=== PATIENT | female | born 1975 | race Two or more races ===

== ENCOUNTER 2024-02-06 11:58 | Emergency (ER) | payer SELFPAY ==
--- NOTE | 2024-02-06 12:33 | PC.NURSE ---
Pt to triage desk saying she wants to sign out, pt states she came in for chest pain and we did not call her right back so she is leaving, pt encouraged ot stay, pt states again we have not done anything, pt made aware of risks and consequences of leaving up to and including , pt encouraged to see pcp, she states she will
== END 2024-02-06 12:35 | disposition left against medical advice (07) ==
LOC: SERX 12:58
PROVIDERS: Emergency Provider Emergency Medicine
DX: Z53.21 Procedure and treatment not carried out due to patient leaving prior to being seen by health care provider (principal)

== ENCOUNTER 2024-04-05 10:54 | Emergency (ER) | payer BC, SELFPAY ==
[2024-04-05 11:21] VITALS: BP 145/93; PULSE 83; RESP 19; TEMP 36.9; O2SAT 99; BMI 34.0
--- NOTE | 2024-04-05 11:24 | EDNOTE_ITS ---
<Statement entered by Lyndsey Dooley MD - 04/12/24 16:24> As co-signing physician, I was present and available for consult prn. I concur with the plan and care as documented by the midlevel provider. ED General RME/HPI General Chief complaint: Flu Like Symptoms Stated complaint: COUGH AND FLU LIKE SYMPTOMS FOR 2 WEEKS Time Seen by Provider: 04/05/24 11:23 Arrival date/time: 04/05/24 10:54 CC: Sore throat cough runny nose HPI ongoing for the past 2 weeks took a leftover prednisone and antibiotic for 5 days without any relief. Has insurance so came in to get checked out. The patient is stable with no vital signs or abnormal as no other specific complaints. Related Data Home Medications ?Medication ?Instructions ?Recorded ?Confirmed biotin 5,000 mcg sublingual tablet 5,000 mcg DAILY 10/25/21 10/25/21 ferrous sulfate 324 mg (65 mg 324 mg PO QDAY 10/25/21 10/25/21 iron) tablet,delayed release fexofenadine 180 mg tablet 180 mg PO Q24H 10/25/21 10/25/21 (Aller-Fex) losartan 50 mg tablet 50 tab PO DAILY 10/25/21 10/25/21 montelukast 10 mg tablet 10 mg PO QDAY 10/25/21 10/25/21 pantoprazole 20 mg tablet,delayed 20 tab PO DAILY 10/25/21 10/25/21 release Previous Rx's ?Medication ?Instructions ?Recorded ipratropium 20 mcg-albuterol 100 1 puff inhalation QID #4 grams 03/29/19 mcg/actuation mist for inhalation (Combivent Respimat) fluticasone propionate 50 1 spray intranasal BID PRN nasal 10/27/21 mcg/actuation nasal congestion #16 grams spray,suspension (Allergy Relief (fluticasone)) meclizine 25 mg tablet 25 mg PO BID PRN dizziness #30 tabs 10/27/21 diphenhydramine HCl 25 mg capsule 25 mg PO TID PRN allergic reaction 08/23/23 (Benadryl) #20 caps famotidine 40 mg tablet (Pepcid) 40 mg PO BID #10 tabs 08/23/23 prednisone 50 mg tablet 50 mg PO QDAY #3 tabs 08/23/23 sulfamethoxazole 800 1 tab PO BID #14 tabs 08/23/23 mg-trimethoprim 160 mg tablet (Bactrim DS) meloxicam 7.5 mg tablet 7.5 mg PO QDAY #10 tabs 04/05/24 Allergies Allergy/AdvReac Type Severity Reaction Status Date / Time No Known Allergies Allergy Verified 08/23/23 18:25 Review of Systems Review of Systems Narrative Review of Systems: GEN: No fever, no chills, no weight loss EYES: No discharge, no visual changes, no pain HEENT: + ear pain, + congestion, + sore throat PULM: No shortness of breath, no cough, no congestion CV: No chest pain, no dyspnea on exertion, no palpitations GI: No nausea, no vomiting, no diarrhea, no pain, no constipation : No frequency, no urgency, no dysuria MUSC/SKEL: No joint pain, no back pain SKIN: No rash PSYCH: No hallucinations, no depression HEME/LYMPH: No easy bleeding or bruising tendencies NEURO: No weakness, no headache Past Medical History Past Medical History CARDIAC: Positive Cardiac Disorders and Hypertension; Negative Congestive Heart Failure RESPIRATORY: Negative Chronic Obstructive Pulmonary Disease (COPD) GASTROINTESTINAL: Positive Gastroesophageal Reflux Disease GENITOURINARY: Negative Renal Disease ENDOCRINE: Negative Diabetes Mellitus Type 1 or Diabetes Mellitus Type 2 Family History FAMILY HISTORY: Positive Family Cardiac Disorders Surgical History SURGICAL: Positive Abdominal Surgery and Tubal Ligation Social History SMOKING STATUS: Never smoker SECOND HAND EXPOSURE: No ED Exam Narrative Physical exam: [General: Obese not in any acute distress Head normocephalic HEENT: Eyes pupils are PERRLA EOMs are intact conjunctiva is noninjected mouth pink moist membranes uvula is midline tonsils are flat no exudative material, nose no rhinorrhea. All ears: EACs are clear TMs within acceptable limits. All the subsystems of HEENT are within acceptable limits Neck is supple nontender, no LAD Chest equal chest rise nontender to palpation Respiratory: Clear to auscultation no wheezes crackles or rubs CV: Rate rhythm is regular no murmurs rubs or clicks Abdomen is distended secondary to body habitus soft nontender no masses positive bowel sounds all 4 quadrants Back: No CVA tenderness no spinous process tenderness from cervical spine thoracic and lumbar spine Skin: Intact no petechiae rash induration ulceration or crepitus Extremities: Moving all extremity against resistance cap refill less than 2 seconds neurosensory intact Neuro: Awake alert oriented x3 Glascow coma 15 no focal deficits] Course Quality Measures none Vital Signs Vital signs: Vital Signs Temperature 98.5 F 04/05/24 11:21 Pulse Rate 83 04/05/24 11:21 Respiratory Rate 19 04/05/24 11:21 Blood Pressure 145/93 H 04/05/24 11:21 Pulse Oximetry (%) 99 04/05/24 11:21 Oxygen Delivery Method Room Air 04/05/24 11:21 [facility] Patient data External records reviewed:: [facility] previous records Clinical information provided by:: patient Social determinants that could affect healthcare access:: none Patient has the following chronic illnesses:: None How is presenting disease/condition affected by chronic disease/condition?: uneffected by Evaluation data The following diagnostics were reviewed and interpreted by me:: other (specify) (None) Lab and/or radiology exams considered but not ordered:: None Interpretation Summary: URI Medications Medications considered but not ordered:: None Medication administrations:: None Consultations Consultation(s) initiated? (list below): No Diagnosis Differential Diagnosis ED Complaint MDM: URI viral syndrome Most likely diagnosis given after review of the tests above:: URI Admission Indicated Admission indicated?: not indicated Explain why admission is indicated or not indicated:: Stable for outpatient follow-up Admission Request Was there a request for admission?: No Disposition Plan Disposition Plan: Discharge Discharge Attestation Discharge Attestation: The patient and all family members were given an opportunity to ask questions and understood the discharge instructions. Discharge instructions specifically effects, indications for sooner follow up or return to the emergency department, and the expected course of current diagnosis. Patient condition: Stable Medical Decision Making Differential Diagnosis Differential Diagnosis: URI viral syndrome Discharge Plan Plan Patient Disposition: HOME (Self Care) Patient condition on transfer: Stable Prescriptions/Referrals Prescriptions/Med Rec: New meloxicam 7.5 mg tablet 7.5 mg PO QDAY Qty: 10 0RF No Action Combivent Respimat 20-100 mcg/actuation mist 1 puff INH QID Qty: 4 0RF Rx Instructions: space evenly during waking hours losartan 50 mg tablet 50 tab PO DAILY Patient Comments: TAKE 1 TABLET BY MOUTH EVERY DAY pantoprazole 20 mg tablet,delayed release (DR/EC) 20 tab PO DAILY Patient Comments: TAKE 1 TABLET BY MOUTH EVERY DAY fexofenadine [Aller-Fex] 180 mg Tablet 180 mg PO Q24H montelukast 10 mg Tablet 10 mg PO QDAY ferrous sulfate 324 mg (65 mg iron) Tablet,Delayed Release (Dr/Ec) 324 mg PO QDAY biotin 5,000 mcg Tablet, Sublingual 5,000 mcg DAILY meclizine 25 mg tablet 25 mg PO BID PRN (Reason: dizziness) Qty: 30 2RF fluticasone propionate [Allergy Relief (fluticasone)] 50 mcg/actuation spray,suspension 1 spray intranasal BID PRN (Reason: nasal congestion) Qty: 16 0RF Rx Instructions: administer into each nostril sulfamethoxazole-trimethoprim [Bactrim DS] 800-160 mg tablet 1 tab PO BID Qty: 14 0RF famotidine [Pepcid] 40 mg tablet 40 mg PO BID Qty: 10 0RF diphenhydramine HCl [Benadryl] 25 mg capsule 25 mg PO TID PRN (Reason: allergic reaction) Qty: 20 0RF prednisone 50 mg tablet 50 mg PO QDAY Qty: 3 0RF Problem List Clinical Impression: Viral syndrome Patient/Caregiver Discharge Instructions Other Activity Instructions:: Take the medication as prescribed no need for antibiotics as I feel this is a viral syndrome follow-up with your primary care provider. Education Materials: ED Viral Syndrome (Adult) Print Language: Korean Stand Alone Forms: [employer] Award Info., Patient Portal Info Letter, Work/School Release PA/ELECTRICIAN RADIO Supervising Physician PA/ELECTRICIAN RADIO Supervising Physician: Williams Madison ENP
== END 2024-04-05 19:07 | disposition home or self-care (01) ==
LOC: SERX 11:41
PROVIDERS: Emergency Provider Emergency Medicine; PCP Internal Medicine
DX: B34.9 Viral infection, unspecified (principal)
CPT/HCPCS: 99281

== ENCOUNTER → 2024-06-05 | Outpatient (CLI) | payer BC, SELFPAY ==
[2024-06-05 10:39] LABS: Basophils % (Auto) 1 % (0-2.5); Eosinophils # (Auto) 0.1 Thou/mm3 (0.0-0.5); Eosinophils % (Auto) 3 % (0-10); Hematocrit 38.2 % (36.0-46.0); Immature Granulocytes % (Auto) 0 % (0-0); Lymphocytes # (Auto) 1.7 Thou/mm3 (1.0-4.8); Lymphocytes % (Auto) 35 % (10-50); Mean Corpuscular Hemoglobin 31.4 pg (25.0-35.0); Mean Corpuscular Volume 92 fL (80-100); Monocytes # (Auto) 0.3 Thou/mm3 (0.0-0.8); Monocytes % (Auto) 5 % (0-12); Neutrophils # (Auto) 2.9 Thou/mm3 (1.8-7.7); Neutrophils % (Auto) 57 % (37-80); Nucleated Red Blood Cell % 0 /100 WBC (0); Platelet Count 339 Thou/mm3 (140-440); Red Blood Count 4.14 Miln/mm3 (4.00-5.20)
[2024-06-05 10:52] LABS: Glucose Estimated Average 91 mg/dL (80-131); Hemoglobin A1C 4.8 % Hgb (4.8-6.0)
[2024-06-05 11:14] LABS: Syphilis Nonreactive (Nonreactive)
[2024-06-05 11:20] LABS: Alanine Aminotransferase 21 U/L (10-49); Albumin, Serum 4.2 gm/dL (3.5-5.0); Albumin/Globulin Ratio 1.8 (1.2-2.2); Alkaline Phosphatase 95 U/L (46-116); Anion Gap 6 (7-16); Aspartate Amino Transferase 18 U/L (0-34); BUN/Creatinine Ratio 17 Ratio (12-20); Bilirubin,Total 0.8 mg/dL (0.3-1.2); Blood Urea Nitrogen 12 mg/dL (9-23); Calcium 9.7 mg/dL (8.3-10.6); Calcium (Corrected) 9.7 mg/dL (8.5-10.1); Carbon Dioxide 30.3 mMol/L (20.0-31.0); Cardiac Risk Estimate 2.7 RATIO (3.7-5.6); Chloride 108 mMol/L (98-107); Cholesterol 135 mg/dL (132-200); Creatinine (Component) 0.7 mg/dL (0.6-1.3); Free T4 (Free Thyroxine) 1.09 ng/dL (0.89-1.76); Globulin 2.4 gm/dL (2.3-3.5); Glucose 89 mg/dL (74-106); HDL Cholesterol 50 mg/dL (40-60); LDL Cholesterol,Calculated 65 mg/dL (0-130); Osmolality,Calculated 285 (275-295); Potassium 4.2 mMol/L (3.4-5.1); Sodium 144 mMol/L (136-145); Thyroid Stimulating Hormone 2.72 uIU/mL (0.55-4.78); Total Protein 6.6 gm/dL (5.7-8.2); Triglycerides 98 mg/dL (30-150); eGFR > 60 See Note
[2024-06-05 12:27] LABS: Hepatitis A Antibody IgM Non Reactive (Non React); Hepatitis B Core Antibody IgM Non Reactive (Non React); Hepatitis B Surface Antigen Non Reactive (Non React); Hepatitis C Antibody Non Reactive (Non React)
[2024-06-05 16:06] LABS: Chlamydia trachomatis PCR Negative (Not Detect); Neisseria Gonorrhoeae DNA PCR Negative (Not Detect); Trichomonas Negative (Negative)
[2024-06-10 06:52] LABS: HIV Ag/Ab, 4th Gen NON-REACTIVE
== END | disposition home or self-care (01) ==
PROVIDERS: PCP Internal Medicine; Referring Provider Nurse Practitioner Family; Visit Provider Nurse Practitioner Family
DX: Z00.01 Encounter for general adult medical examination with abnormal findings (principal); Z11.3 Encounter for screening for infections with a predominantly sexual mode of transmission; Z13.6 Encounter for screening for cardiovascular disorders
CPT/HCPCS: 36415; 80053; 80061; 80074; 83036; 84439; 84443; 85025; 86780; 87389; 87491; 87591; 87661

== ENCOUNTER → 2024-07-02 | Outpatient (CLI) | payer BC, SELFPAY ==
--- NOTE | 2024-07-02 09:25 | XR_ITS ---
Examination: Thyroid sonography complete TECHNIQUE: Grayscale sonographic images thyroid lobes Exam date and time: July 02, 2024 0905 hours INDICATIONS: Throat pain 6 months FINDINGS: Right thyroid 4.8 cm Upper pole nodule 12 mm Midpole nodule 11 mm Lower pole nodule 9 mm Left thyroid 3.9 cm Upper pole nodule 7 mm Midpole nodule 9 mm Lower pole nodule 7 mm Bilateral smaller thyroid nodules Also nodules outside the left thyroid lobe 5 x 10 mm 6 x 10 mm likely parathyroid adenomas IMPRESSION: Multiple thyroid nodules as above Consider nuclear medicine sestamibi scan to confirm two parathyroid nodules adjacent to the left thyroid lobe
== END | disposition home or self-care (01) ==
PROVIDERS: PCP Nurse Practitioner Family; Referring Provider Nurse Practitioner Family; Visit Provider Nurse Practitioner Family
DX: E04.2 Nontoxic multinodular goiter (principal); Z86.39 Personal history of other endocrine, nutritional and metabolic disease
CPT/HCPCS: 76536

== ENCOUNTER → 2024-07-29 | Outpatient (CLI) | payer BC, SELFPAY ==
--- NOTE | 2024-07-29 14:15 | XR_ITS ---
Examination: Screening digital mammography, bilateral Computer aided detection 3-D breast Tomosynthesis, bilateral Date and time of exam: July 29, 2024 1356 hours No priors Indication: Screening Technique: Nonmagnified MLO, CC views of the breasts to been obtained, reconstructed from 3-D Tomosynthesis images. R2 computer aided detection program utilized for evaluation of suspicious masses and/or abnormal calcifications. 3-D Tomosynthesis images obtained. Findings: The breasts are heterogeneously dense, which may obscure small masses Benign calcifications No suspicious masses Impression: BI-RADS category II: Benign Findings. Recommend 1 year follow-up mammogram.
== END | disposition home or self-care (01) ==
LOC: CDIM 13:50
PROVIDERS: Referring Provider Nurse Practitioner Family; Visit Provider Nurse Practitioner Family
DX: Z12.31 Encounter for screening mammogram for malignant neoplasm of breast (principal); R92.323 Mammographic fibroglandular density, bilateral breasts; R92.1 Mammographic calcification found on diagnostic imaging of breast
CPT/HCPCS: 77063; 77067

== ENCOUNTER → 2025-03-21 | Outpatient (CLI) | payer BC, SELFPAY ==
--- NOTE | 2025-03-21 12:30 | XR_ITS ---
EXAMINATION: Thyroid sonography TECHNIQUE: Grayscale sonographic images thyroid lobes Date and time: March 21, 2025, 1256 hours INDICATIONS: Ultrasound of July 02, 2024 multiple thyroid nodules FINDINGS: Right thyroid 5.0 cm Multiple subcentimeter thyroid nodules Isthmus nodule 7 x 4 x 9 mm Left thyroid 3.8 cm Multiple subcentimeter thyroid nodules IMPRESSION: Isthmus solid nodule 7 x 4 x 9 mm Multiple bilateral subcentimeter thyroid nodules
== END | disposition home or self-care (01) ==
LOC: CDIM 12:28
DX: E04.2 Nontoxic multinodular goiter (principal)
CPT/HCPCS: 76536